=== PATIENT | male | born 1990 | race Caucasian/White ===

== ENCOUNTER 2017-06-09 09:37 | Emergency (ER) | payer SELFPAY ==
[~2017-06-09 09:37] MED LIST: CEPH-443 PO
[2017-06-09] MEDS ORDERED: ONDA4TAB8 PO (16:08)
[2017-06-09] MEDS ORDERED: RANI150T9 PO (16:08)
== END 2017-06-09 10:11 | disposition left against medical advice (07) ==
LOC: E/R 09:37
DX: Z53.21 Procedure and treatment not carried out due to patient leaving prior to being seen by health care provider (principal)

== ENCOUNTER 2017-06-09 10:22 | Emergency (ER) | payer OTHER ==
[~2017-06-09] VITALS: Ht 157.5 cm; Wt 91.0 kg
[2017-06-09 10:25] VITALS: Ht 157.5 cm; Wt 91.0 kg
[2017-06-09] MEDS ORDERED: FAMOTIDINE 20 MG INJ IV STA (13:00)
[2017-06-09] MEDS ORDERED: KETOROLAC 30 MG INJ IV STA (13:00)
[2017-06-09] MEDS ORDERED: SOD CHLORIDE 0.9% 100 ML IV STA (13:00)
--- NOTE | 2017-06-09 13:03 | ERD ---
ER Documentation Chief Complaint Chief Complaint Complains of abdominal with diarrhea and vomiting pain since last night HPI 27 y/o male, previously healthy c/o acute onset of intermittent abdominal pain in epigastric that started last night after eating pizza and cake to celebrate his release from [facility]. Today the patient had >6 episodes of greenish diarrhea , no blood or mucous. The pain is described as cramping, sometimes burning, located on epigastrium; rated 5/10. Denies fever, chills. No jaundice. Denies the use of IV drugs in [facility] or tattoos ROS SYSTEMIC symptoms: no fever, but chills, no night sweats EYE symptoms: No eyesight problems. OTOLARYNGEAL symptoms: No hearing loss. CARDIOVASCULAR symptoms: No chest pain or discomfort, no palpitations. PULMONARY symptoms: No dyspnea, no cough, no wheezing. GASTROINTESTINAL symptoms: (+) abdominal pain, nausea, vomiting and diarrhea SKIN no rashes, no jaundice MUSCULOSKELETAL symptoms: No arthralgias, no muscle aches. NEUROLOGY symptoms: No confusion, no syncope, no numbness or tingling. Medications Home Meds Active Scripts Cephalexin* (Keflex*) 500 Mg Capsule, 500 MG PO QID for 5 Days, CAP Prov:DANG TAN MD 06/07/15 Allergies Allergies: Coded Allergies: No Known Allergy (Unverified , 06/07/15) PMhx/Soc Medical and Surgical Hx: pt denies Medical Hx, pt denies Surgical Hx Hx Alcohol Use: Yes (OCCASIONAL) Hx Substance Use: No Hx Tobacco Use: Yes (1/2 pk/day) Smoking Status: Current every day smoker Physical Exam Vitals Vital Signs Date Time Temp Pulse Resp B/P Pulse Ox O2 Delivery O2 Flow Rate FiO2 06/09/17 14:49 98.4 98 18 136/74 98 Room Air 06/09/17 10:25 98.7 103 20 143/81 100 Physical Exam Const: Mild distress, dry oral mucosa Resp: Clear to auscultation bilaterally Cardio: Regular rate and rhythm, no murmurs Abd: Soft, mild tenderness to deep palpation, no peritoneal signs. Increased bowel sounds Back: No midline or flank tenderness Result Diagram: 06/09/17 1330 06/09/17 1330 Results 24 hrs Laboratory Tests Test 06/09/17 13:30 White Blood Count 7.510^3/ul Red Blood Count 4.8910^6/ul Hemoglobin 15.3g/dl Hematocrit 43.5% Mean Corpuscular Volume 89.0fl Mean Corpuscular Hemoglobin 31.3pg Mean Corpuscular Hemoglobin Concent 35.2g/dl Red Cell Distribution Width 12.0% Platelet Count 97562^3/UL Mean Platelet Volume 10.5fl Neutrophils % 75.2% Lymphocytes % 15.8% Monocytes % 8.4% Eosinophils % 0.1% Basophils % 0.4% Nucleated Red Blood Cells % 0.0/100WBC Neutrophils # 5.710^3/ul Lymphocytes # 1.210^3/ul Monocytes # 0.610^3/ul Eosinophils # 0.010^3/ul Basophils # 0.010^3/ul Nucleated Red Blood Cells # 0.010^3/ul Sodium Level 142mmol/L Potassium Level 4.1mmol/L Chloride Level 101mmol/L Carbon Dioxide Level 26mmol/L Anion Gap 19 Blood Urea Nitrogen 17mg/dl Creatinine 0.82mg/dl Glucose Level 108mg/dl Calcium Level 9.6mg/dl Total Bilirubin 3.6mg/dl Direct Bilirubin 0.00mg/dl Indirect Bilirubin 3.6mg/dl Aspartate Amino Transf (AST/SGOT) 27IU/L Alanine Aminotransferase (ALT/SGPT) 33IU/L Alkaline Phosphatase 75IU/L Total Protein 8.2g/dl Albumin 5.0g/dl Globulin 3.20g/dl Albumin/Globulin Ratio 1.56 Lipase 206U/L Current Medications Medications (Trade) Dose Ordered Sig/Rylie Route PRN Reason Start Time Stop Time Status Last Admin Dose Admin Sodium Chloride (NS) 100 ml @ 100 mls/hr Q1H STAT IV 06/09/17 13:00 06/09/17 13:59 DC 06/09/17 13:37 Famotidine (Pepcid Iv) 20 mg ONCE STAT IV 06/09/17 13:00 06/09/17 13:04 DC 06/09/17 13:42 Ketorolac Tromethamine (Toradol) 30 mg ONCE STAT IV 06/09/17 13:00 06/09/17 13:04 DC 06/09/17 13:42 Ondansetron HCl (Zofran Inj) 4 mg ONCE STAT IV 06/09/17 13:46 06/09/17 13:47 DC 06/09/17 14:03 Procedures/MDM Abdominal pain: Low suspicion for acute abdomen. differential includes: gastritis, gastroenteritis, cholelithiasis, cholecystitis. appendicitis, UTI, less likely pancreatitis, renal stone or hepatitis. Plan: CBC,CMP, lipase: Results unremarkable except for Elevated direct bilirubin . Rest of liver function test in normal range. Low suspicion for acute hepatitis but is a possibility considering that the patient spent 2 years in [facility] The patient received IV fluids and IV medications presenting improving of his symptoms. Recommend to f/u with PCP in 2-4 days for monitoring of liver function tests Departure Diagnosis: Primary Impression: Abdominal pain Additional Impressions: Diarrhea with dehydration Conjugated hyperbilirubinemia Condition: Stable Patient Instructions: Dehydration Additional Instructions: Please schedule a follow up appointment with your primary doctor in 2 -4 days and bring all the information and prescriptions that we have given to you today. If the doctor is unavailable and the symptoms persist or worsen please return to the emergency department GLEN ANDRADE MD Jun 09, 2017 13:03
[2017-06-09 13:44] LABS: WHITE BLOOD COUNT 7.5 10^3/ul (4.8-10.8)
[2017-06-09 13:45] LABS: BASOPHILS % 0.4 % (0.0-2.0); EOSINOPHILS % 0.1 % (0.0-7.0); HEMATOCRIT 43.5 % (42.0-52.0); HEMOGLOBIN 15.3 g/dl (14.0-18.0); LYMPHOCYTES # 1.2 10^3/ul (0.8-2.9); LYMPHOCYTES % 15.8 % (15.0-51.0); MEAN CORPUSCULAR HEMOGLOBIN 31.3 pg (29.0-33.0); MEAN CORPUSCULAR HGB CONC 35.2 g/dl (32.0-37.0); MEAN PLATELET VOLUME 10.5 fl (7.4-10.4); MONOCYTE # 0.6 10^3/ul (0.3-0.9); MONOCYTES % 8.4 % (0.0-11.0); NEUTROPHIL # 5.7 10^3/ul (1.6-7.5); NEUTROPHILS % 75.2 % (39.0-77.0); PLATELET COUNT 194 10^3/UL (140-415); RED BLOOD COUNT 4.89 10^6/ul (4.70-6.10)
[2017-06-09] MEDS ORDERED: ONDANSETRON 4 MG INJ IV STA (13:46)
[2017-06-09 13:58] LABS: ALBUMIN/GLOBULIN RATIO 1.56; BILIRUBIN,INDIRECT 3.6 mg/dl (0-1.1); BILIRUBIN,TOTAL 3.6 mg/dl (0.2-1.3); CALCIUM 9.6 mg/dl (8.4-10.2); CREATININE 0.82 mg/dl (0.61-1.24); POTASSIUM 4.1 mmol/L (3.5-5.1); TOTAL PROTEIN 8.2 g/dl (6.1-8.1)
[2017-06-09] MEDS ORDERED: ONDA4TAB8 PO (16:08)
[2017-06-09] MEDS ORDERED: RANI150T9 PO (16:08)
[2017-06-09 16:29] LABS: ADD UMIC YES; UR ASCORBIC ACID NEGATIVE (NEGATIVE); UR BACTERIA FEW /HPF (NONE SEEN); UR BILIRUBIN (Dip) NEGATIVE (NEGATIVE); UR BLOOD (Dip) 1+ mg/dL (NEGATIVE); UR CLARITY CLEAR (CLEAR); UR COLOR YELLOW (YELLOW); UR GLUCOSE (Dip) NEGATIVE (NEGATIVE); UR KETONES (Dip) NEGATIVE (NEGATIVE); UR LEUKOCYTE ESTERASE (Dip) NEGATIVE Leu/ul (NEGATIVE); UR MUCUS FEW /HPF (NONE SEEN); UR NITRITE (Dip) NEGATIVE (NEGATIVE); UR RBC 11 /HPF (0-5); UR SPECIFIC GRAVITY (Dip) 1.026 (1.003-1.030); UR TOTAL PROTEIN (Dip) 1+ mg/dl (NEGATIVE); UR UROBILINOGEN (Dip) 1+ mg/dL (NEGATIVE)
[2017-06-09 16:32] VITALS: BP 118/62; PULSE 64; RESP 15; TEMP 98.3
== END 2017-06-09 16:50 | disposition home or self-care (01) ==
LOC: FTE 10:22
DX: R19.7 Diarrhea, unspecified (principal); E86.0 Dehydration; R17 Unspecified jaundice; F17.210 Nicotine dependence, cigarettes, uncomplicated
CPT/HCPCS: 36415; 80053; 81001; 83690; 85025; 96374; 96375; J1885; J2405; J7040; Z7502; Z7610

== ENCOUNTER 2017-08-08 16:07 | Emergency (ER) | payer OTHER ==
[~2017-08-08] VITALS: Ht 170.2 cm; Wt 81.3 kg
[~2017-08-08 16:07] MED LIST changes: +ONDA4TAB8 PO; +RANI150T9 PO
[2017-08-08 16:12] VITALS: Ht 170.2 cm; Wt 81.3 kg
--- NOTE | 2017-08-08 19:08 | ERD ---
ER Documentation Chief Complaint Chief Complaint lt foot pain , nausea , dizziness HPI This is a 27-year-old male presents emergency department today complaining of dizziness that started today. States he has also left foot pain and some shortness of breath. 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 Denies any drug use. States that he is currently "couch surfing". Denies any fevers or chills, headache, chest pain.. States he did not eat much today. ROS All systems reviewed and are negative except as per history of present illness. Medications Home Meds Active Scripts Ondansetron Hcl* (Zofran*) 4 Mg Tablet, 4 MG PO Q8H Y for NAUSEA AND/OR VOMITING for 7 Days, #21 TAB Prov:GLEN ANDRADE MD 06/09/17 Ranitidine Hcl* (Zantac*) 150 Mg Tablet, 150 MG PO BID Y for EPIGASTRIC PAIN for 10 Days, #20 TAB Prov:GLEN ANDRADE MD 06/09/17 Cephalexin* (Keflex*) 500 Mg Capsule, 500 MG PO QID for 5 Days, CAP Prov:DANG TAN MD 06/07/15 Allergies Allergies: Coded Allergies: No Known Allergy (Unverified , 08/08/17) PMhx/Soc Medical and Surgical Hx: pt denies Medical Hx, pt denies Surgical Hx Hx Alcohol Use: Yes (OCCASIONAL) Hx Substance Use: No Hx Tobacco Use: Yes (1/2 pk/day) Smoking Status: Current every day smoker Physical Exam Vitals Vital Signs Date Time Temp Pulse Resp B/P Pulse Ox O2 Delivery O2 Flow Rate FiO2 08/08/17 16:12 98.1 110 18 114/79 98 Physical Exam Const: NAD Head: Atraumatic Eyes: Normal Conjunctiva ENT: Normal External Ears, Nose and Mouth. Neck: Full range of motion..~ No meningismus. Resp: Clear to auscultation bilaterally Cardio: Regular rate and rhythm, no murmurs Abd: Soft, non tender, non distended. Normal bowel sounds Skin: No petechiae or rashes Back: No midline or flank tenderness Ext: No cyanosis, or edema Neur: Awake and alert Psych: Normal Mood and Affect Procedures/MDM This is a 27-year-old male who presented to the emergency department today with multiple complaints. Patient was complained that he was dizzy, short of breath and had left foot pain. I did offer to obtain laboratory workup as well as imaging for the patient and that was ordered and I was notified by the tech in the emergency department that patient did not want to have any of that that he just wanted to lay down. Patient eloped prior to receiving any further intervention. Patient had indicated that he was "couch surfing". Patient was mildly tachycardic at intake his vital signs were otherwise stable. His physical exam was benign and patient eloped in stable condition. Departure Diagnosis: Primary Impression: Multiple complaints Condition: PARVEEN Hays PA-C Aug 08, 2017 19:08
== END 2017-08-08 20:00 | disposition left against medical advice (07) ==
LOC: FTE 16:07
DX: M79.672 Pain in left foot (principal); R42 Dizziness and giddiness; R06.02 Shortness of breath; R11.0 Nausea; F17.210 Nicotine dependence, cigarettes, uncomplicated
CPT/HCPCS: 99283